=== PATIENT | female | born 1985 | race Asian ===

== ENCOUNTER 2017-05-09 20:32 | Emergency (ER) | payer OTHER, SELFPAY ==
[~2017-05-09] VITALS: Ht 165.1 cm; Wt 145.4 kg
[~2017-05-09 20:32] MED LIST: CLON-570 PO; SERT50TA12 PO
[2017-05-09 21:00] LABS: BASOPHILS % (AUTO) 1.1 % (0.0-2.0); EOSINOPHILS % (AUTO) 4.9 % (1.0-6.0); HEMATOCRIT 38.9 % (36-46); HEMOGLOBIN 12.7 g/dL (12.0-16.0); LYMPHOCYTES # (AUTO) 1.7 K/uL (1.0-4.8); LYMPHOCYTES % (AUTO) 26.5 % (22.0-44.0); MEAN CORPUSCULAR HEMOGLOBIN 24.4 pg (26.0-34.0); MEAN CORPUSCULAR HGB CONC 32.5 G/dL (31.0-37.0); MEAN CORPUSCULAR VOLUME 75 fL (80-100); MONOCYTES # (AUTO) 0.4 K/uL (0.1-1.0); MONOCYTES % (AUTO) 6.3 % (2.0-9.0); NEUTROPHILS % (AUTO) 61.2 % (40.0-70.0); PLATELET COUNT (AUTO) 307 K/uL (150-450); RED BLOOD CELL COUNT(AUTO) 5.19 MIL/uL (4.00-5.20); RED CELL DISTRIBUTION WIDTH 16.9 % (11.5-14.5); WHITE BLOOD COUNT (AUTO) 6.5 K/uL (4.5-11.0)
[2017-05-09 21:11] LABS: ANION GAP 12 mmol/L (8-16); CALCIUM, TOTAL 8.5 mg/dL (8.8-10.5); CARBON DIOXIDE 22 mmol/L (22-29); CHLORIDE 111 mmol/L (98-107); CREATININE 0.76 mg/dL (0.60-1.30); GLOMERULAR FILTR. RATE CALC > 60 mL/min (>60); POTASSIUM 3.7 mmol/L (3.5-5.1); SODIUM SERUM 145 mmol/L (136-145); UREA NITROGEN, BLOOD 6 mg/dL (7-18)
[2017-05-09 21:17] LABS: ALANINE AMINOTRANSFERASE 39 U/L (12-78); ALBUMIN 3.5 g/dL (3.4-5.0); ASPARTATE AMINOTRANSFERASE 22 U/L (15-37); BILIRUBIN,TOTAL 0.3 mg/dL (0.1-1.0); TOTAL PROTEIN, SERUM 8.2 g/dL (6.4-8.2)
[2017-05-09 21:23] LABS: RBC MORPHOLOGY COMMENT ABNORMAL RBC MORPH
[2017-05-09] MEDS ORDERED: PERTUSS(ACELL),DIPH,TET VAC/PF 0.5 ML VIAL IM ONE (22:45)
[2017-05-09] MEDS ORDERED: BACITRACIN 0.9 GM PACKET OINTMENT TP ONE (22:45)
[2017-05-09 22:55] VITALS: BP 117/80
== END 2017-05-10 01:27 | disposition home or self-care (01) ==
LOC: EEVIPCON 20:33 → EMS 20:33
DX: S61.512A Laceration without foreign body of left wrist, initial encounter (principal); E11.9 Type 2 diabetes mellitus without complications; F10.129 Alcohol abuse with intoxication, unspecified; K21.9 Gastro-esophageal reflux disease without esophagitis; I10 Essential (primary) hypertension; F41.9 Anxiety disorder, unspecified; Z98.84 Bariatric surgery status; Z88.1 Allergy status to other antibiotic agents; X78.9XXA Intentional self-harm by unspecified sharp object, initial encounter; Y93.89 Activity, other specified; Y92.89 Other specified places as the place of occurrence of the external cause; Y99.9 Unspecified external cause status
CPT/HCPCS: 36415; 80053; 84703; 85025; 90471; 90715; 99285; G0480

== ENCOUNTER 2017-09-29 20:13 | Inpatient (IN) | payer MEDICAID, OTHER ==
[~2017-09-29] VITALS: Ht 165.1 cm; Wt 145.2 kg
[2017-09-29] MEDS ORDERED: [UNRECOGNIZED DRUG - REMARK] PO (21:31)
[2017-09-29 21:42] LABS: GLUCOSE,POINT OF CARE 113 MG/DL (70-110)
[2017-09-29 21:51] LABS: AMPHET/METH SCREEN,URINE NEGATIVE (NEGATIVE); BARBITURATE SCREEN, URINE NEGATIVE (NEGATIVE); BENZODIAZEPINES SCREEN,URINE NEGATIVE (NEGATIVE); CANNABINOID SCREEN,URINE NEGATIVE (NEGATIVE); COCAINE SCREEN,URINE NEGATIVE (NEGATIVE); METHADONE SCREEN, URINE NEGATIVE (NEGATIVE); OPIATE SCREEN,URINE NEGATIVE (NEGATIVE)
[2017-09-29 21:59] LABS: PHENCYCLIDINE SCREEN,URINE NEGATIVE (NEGATIVE)
[2017-09-29 22:00] LABS: BASOPHILS % (AUTO) 1.5 % (0.0-2.0); EOSINOPHILS % (AUTO) 0.9 % (1.0-6.0); HEMATOCRIT 41.3 % (36-46); HEMOGLOBIN 13.5 g/dL (12.0-16.0); LYMPHOCYTES # (AUTO) 2.2 K/uL (1.0-4.8); LYMPHOCYTES % (AUTO) 39.4 % (22.0-44.0); MEAN CORPUSCULAR HEMOGLOBIN 26.5 pg (26.0-34.0); MEAN CORPUSCULAR HGB CONC 32.8 G/dL (31.0-37.0); MEAN CORPUSCULAR VOLUME 81 fL (80-100); MONOCYTES # (AUTO) 0.5 K/uL (0.1-1.0); MONOCYTES % (AUTO) 8.5 % (2.0-9.0); NEUTROPHILS # (AUTO) 2.7 K/uL (1.8-7.7); NEUTROPHILS % (AUTO) 49.7 % (40.0-70.0); PLATELET COUNT (AUTO) 304 K/uL (150-450); RED BLOOD CELL COUNT(AUTO) 5.11 MIL/uL (4.00-5.20); RED CELL DISTRIBUTION WIDTH 21.5 % (11.5-14.5)
[2017-09-29 22:09] LABS: ANION GAP 16 mmol/L (8-16); CALCIUM, TOTAL 8.6 mg/dL (8.8-10.5); CARBON DIOXIDE 24 mmol/L (22-29); CHLORIDE 103 mmol/L (98-107); CREATININE 0.68 mg/dL (0.60-1.30); GLOMERULAR FILTR. RATE CALC > 60 mL/min (>60); GLUCOSE,RANDOM 111 mg/dL (70-110); POTASSIUM 3.7 mmol/L (3.5-5.1); SODIUM SERUM 143 mmol/L (136-145); UREA NITROGEN, BLOOD 9 mg/dL (7-18)
[2017-09-29 22:14] LABS: ALANINE AMINOTRANSFERASE 53 U/L (12-78); ALBUMIN 3.3 g/dL (3.4-5.0); ALKALINE PHOSPHATASE 101 U/L (46-116); ASPARTATE AMINOTRANSFERASE 41 U/L (15-37); BILIRUBIN,TOTAL 0.4 mg/dL (0.1-1.0); TOTAL PROTEIN, SERUM 7.4 g/dL (6.4-8.2)
[2017-09-29] MEDS ORDERED: DiphenhydrAMINE HCL 50 MG/ML VIAL IM ONE (22:45)
[2017-09-29] MEDS ORDERED: HALOPERIDOL LACTATE 5 MG/ML VIAL IM ONE (22:45)
[2017-09-29] MEDS ORDERED: HALOPERIDOL 5 MG TABLET PO PRN (23:00)
[2017-09-29] MEDS ORDERED: ZOLPIDEM TARTRATE 10 MG TABLET PO PRN (23:00)
[2017-09-30 03:12] LABS: CHOL/HDL RATIO 1.6 (3.9-5.7); CHOLESTEROL 145 mg/dL (131-200); HDL CHOLESTEROL 92 mg/dL (40-60); TRIGLYCERIDES 496 mg/dL (15-150)
[2017-09-30 03:21] LABS: APPEARANCE,URINE CLEAR (CLEAR); BILIRUBIN,URINE NEGATIVE (NEGATIVE); GLUCOSE, URINE (UA) NEGATIVE (NEGATIVE); KETONES,URINE NEGATIVE (NEGATIVE); LEUKOCYTE ESTERASE ,URINE NEGATIVE (NEGATIVE); NITRATE,URINE NEGATIVE (NEGATIVE); OCCULT BLOOD,URINE NEGATIVE (NEGATIVE); PH,URINE 6.5 (5.0-8.0); PROTEIN,URINE NEGATIVE (NEGATIVE); UROBILINOGEN,URINE 0.2 mg/dL (<=1.0)
[2017-09-30 03:23] LABS: HEMOGLOBIN A1C 5.3 % (4.5-6.2)
[2017-09-30 05:08] VITALS: BP 134/70
[2017-09-30 05:13] VITALS: BP 134/70
[2017-09-30] MEDS ORDERED: PNEUMOCOCCAL VACCINE POLYVALENT 0.5 ML VIAL [PPSV23] IM ONE (06:30)
[2017-09-30] MEDS ORDERED: INFLUENZA VIRUS VACCINE QVS 2017-18 (3YR+)/PF 60 MCG/0.5 ML SYRINGE IM ONE (06:30)
[2017-09-30 06:32] LABS: GLUCOMETER DEV NAME(LOC) BV3S 2; GLUCOSE,POINT OF CARE 84 MG/DL (70-110)
[2017-09-30] MEDS: LORazepam 2 MG TABLET PO PRN ×3 (08:05→16:40)
[2017-09-30] MEDS: BusPIRone HCL 5 MG TABLET PO SCH ×2 (13:27→16:11)
[2017-09-30 16:25] VITALS: BP 138/79
[2017-09-30] MEDS ORDERED: ACETAMINOPHEN 325 MG TABLET PO PRN (16:45)
[2017-09-30] MEDS ORDERED: IBUPROFEN 400 MG TABLET PO PRN (16:45)
[2017-09-30] MEDS: SIMVASTATIN 10 MG TABLET PO SCH (20:07)
[2017-10-01 06:30] VITALS: BP 135/75
[2017-10-01 06:52] LABS: GLUCOMETER DEV NAME(LOC) BV3S 2; GLUCOSE,POINT OF CARE 141 MG/DL (70-110)
[2017-10-01 08:00] VITALS: BP 161/93
[2017-10-01] MEDS: OMEPRAZOLE 20 MG CAPSULE PO SCH (08:40)
[2017-10-01] MEDS: LORazepam 2 MG TABLET PO PRN (08:40)
[2017-10-01] MEDS: BusPIRone HCL 5 MG TABLET PO SCH ×2 (08:40→12:19)
[2017-10-01] MEDS: VENLAFAXINE HCL 75 MG ER CAPSULE PO SCH (08:40)
[2017-10-01] MEDS ORDERED: CloNIDine HCL 0.1 MG TABLET PO PRN (11:45)
[2017-10-01] MEDS ORDERED: BusPIRone HCL 10 MG TABLET PO SCH (13:00)
[2017-10-01 13:53] VITALS: BP 148/90
[2017-10-01 16:25] VITALS: BP 103/62
[2017-10-01] MEDS: BusPIRone HCL 10 MG TABLET PO SCH (16:46)
[2017-10-01] MEDS: SIMVASTATIN 10 MG TABLET PO SCH (21:11)
[2017-10-02 06:52] VITALS: BP 111/66
[2017-10-02] MEDS: OMEPRAZOLE 20 MG CAPSULE PO SCH (08:52)
[2017-10-02] MEDS: BusPIRone HCL 10 MG TABLET PO SCH ×2 (08:52→12:35)
[2017-10-02] MEDS: VENLAFAXINE HCL 75 MG ER CAPSULE PO SCH (08:52)
[2017-10-02 09:18] VITALS: BP 136/87
[2017-10-02] MEDS ORDERED: VENL-67 PO (13:13)
[2017-10-02] MEDS ORDERED: SIMV10TA2 PO (13:13)
[2017-10-02] MEDS ORDERED: OMEP20 PO (13:13)
[2017-10-02] MEDS ORDERED: BUSP10TA23 PO (13:13)
== END 2017-10-02 15:05 | disposition home or self-care (01) | DRG 751 ==
LOC: EMS 20:15 → B3A 23:59
PROVIDERS: ADMIT Psychiatry & Neurology Psychiatry; ATTEND Psychiatry & Neurology Psychiatry
PROC: 3E0234Z Introduction of Serum, Toxoid and Vaccine into Muscle, Percutaneous Approach (ICD-10-PCS; principal; 2017-09-30)
DX: F33.2 Major depressive disorder, recurrent severe without psychotic features (principal); Z68.43 Body mass index [BMI] 50.0-59.9, adult; R45.851 Suicidal ideations; E11.9 Type 2 diabetes mellitus without complications; E66.01 Morbid (severe) obesity due to excess calories; E78.5 Hyperlipidemia, unspecified; F10.10 Alcohol abuse, uncomplicated; F60.3 Borderline personality disorder; K21.9 Gastro-esophageal reflux disease without esophagitis; F15.90 Other stimulant use, unspecified, uncomplicated; I10 Essential (primary) hypertension; Z81.8 Family history of other mental and behavioral disorders; Z98.84 Bariatric surgery status; Z88.1 Allergy status to other antibiotic agents; Z79.899 Other long term (current) drug therapy; Z98.51 Tubal ligation status; Z23 Encounter for immunization
CPT/HCPCS: 82962; 83036; G0480; J1200; J1630